=== PATIENT | male | born 2000 | race Caucasian/White ===

== ENCOUNTER 2019-11-03 08:38 | Outpatient (CLI) | payer MEDICAID, SELFPAY | END 2019-11-03 08:58 | PROVIDERS: PCP Pediatrics; Visit Provider Pediatrics | DX: R00.8 Other abnormalities of heart beat (principal) | CPT/HCPCS: 93225 ==

== ENCOUNTER 2019-11-08 07:51 | Outpatient (CLI) | payer MEDICAID, SELFPAY ==
--- NOTE | 2019-11-08 12:30 | W.HOLTRPT ---
Date of service: 11/08/19 Time of Service: 12:30 Holter Monitor Report Holter Monitor Note: Is a 48-hour Holter monitor ordered for indication of tachycardia. ?Patient was normal sinus rhythm for majority of the recording. Average heart rate 78 bpm (48-169 bpm) ?There were no episodes of supraventricular tachycardia and no premature atrial contractions. ?There were no episodes of ventricular tachycardia and 6 single ventricular ectopic beats. ?There were no episodes of atrial fibrillation no pauses greater than 3 seconds no evidence of high degree heart block. ?Patient triggered events were all associated with sinus rhythm and sinus tachycardia.
== END 2019-11-08 08:11 ==
PROVIDERS: PCP Pediatrics; Visit Provider Pediatrics
DX: R00.0 Tachycardia, unspecified (principal)
CPT/HCPCS: 93226

== ENCOUNTER 2019-11-11 10:10 | Emergency (ER) | payer MEDICAID, SELFPAY ==
[2019-11-11 10:11] VITALS: BP 137/96; PULSE 94; RESP 18; TEMP 37; O2SAT 97
--- NOTE | 2019-11-11 10:13 | ED.GENADUL_ITS ---
Discharge Plan Disposition Patient Disposition: HOME Condition: Stable Discharge Details Chief Complaint: Laceration Clinical Impression: Puncture wound of foot excluding toes without complication Primary Care Provider: FATMATA ZAFAR ED Provider: Helen Infante Home Meds and New Rx's Prescriptions: No Action montelukast [Singulair] 10 mg Tablet 10 mg PO DAILY RF: 0 albuterol sulfate [ProAir HFA] 90 mcg/actuation Hfa Aerosol Inhaler 2 puff INHALATION QID PRNRF: 0 Discharge Instructions Instructions: Puncture Wound (ED) Additional Instructions: Follow up with primary care provider in 3-5 days. Return to ED sooner if any worsening or concerns. Increase oral fluids. Please take Tylenol or Ibuprofen with food every 4-6 hours as needed for pain and swelling. Referrals: FATMATA ZAFAR [Primary Care Provider] - Medical Decision Making 19-year-old male presents with a chief complaint of right foot puncture wound. He reportedly stepped on a mata nail last night. No other complaints. His last tetanus shot was in 2010 which was 9 years ago. We will give him a booster today. Will give tetanus booster patient instructed on wound care, verbalized understanding. No signs of infection patient has no other complaints. She brought in for because patient received Tdap vaccination by hourly sales staff. Discharged home. HPI General Mode of arrival: ambulatory . Date/Time Provider Initiated Documentation: 11/11/19 10:12 . Limitations to Documentation: no limitations . Information obtained by: patient . HPI Narrative: 19-year-old male presents with a chief complaint of right foot puncture wound. He reportedly stepped on a mata nail last night. No other complaints. His last tetanus shot was in 2010 which was 9 years ago. We will give him a booster today. Related Data Home Medications Medication Instructions Recorded Confirmed albuterol sulfate [ProAir HFA] 2 puff INHALATION QID PRN 11/11/19 11/11/19 montelukast [Singulair] 10 mg PO DAILY 11/11/19 11/11/19 Allergies Allergy/AdvReac Type Severity Reaction Status Date / Time No Known Allergies Allergy Unverified 11/11/19 10:16 Review of Systems Narrative: Constitutional: Negative for weight loss, alert and oriented, well groomed, normal body habitus, appears comfortable. HEENT: Denies trauma, headaches, blurry vision, nasal discharge, sore throat, trouble swallowing. Chest: Denies chest pain, palpitations, irregular rhythm, hypertension. Respiratory: Denies Shortness of breath, cough, hemoptysis. Extremities: Puncture wound noted to his right sole of his foot. Hematologic: Denies easy bruising, intolerance to heat or cold, hair loss. [facility] Social History Smoking/Tobacco Use Status: Never Alcohol Intake: never Substance use type: does not use Do you feel safe at home: Yes Do you feel safe in your relationship?: Yes Exam Const General: cooperative, healthy appearing, comfortable and no acute distress Nutritional Appearance: average body habitus Orientation: alert, awake and oriented x3 Limitations: altered mental status Resp Effort & Inspection: normal respiratory effort Auscultation: clear to auscultation bilaterally Cardio Jugular venous pressure: no JVD Rate: regular rate Rhythm: regular rhythm Heart Sounds: S1 normal and S2 normal Skin General skin exam: no rashes or lesions noted Lesions: no lesions Rashes: no rashes Trauma: puncture (Sole of right foot) Extrem Ankle/foot/toe images: 1. Very small puncture wound, no surrounding erythema or swelling.
== END 2019-11-11 10:28 | disposition home or self-care (01) ==
PROVIDERS: Emergency Provider Registered Nurse Emergency; PCP Pediatrics
DX: S91.331A Puncture wound without foreign body, right foot, initial encounter (principal); W45.0XXA Nail entering through skin, initial encounter
CPT/HCPCS: 90471; 99284; 99283